=== PATIENT | female | born 2000 | race Caucasian/White ===

== ENCOUNTER → 2024-11-09 | Outpatient (CLI) | LOC: M SOG 14:29 | PROVIDERS: ATTEND Physician Assistant | DX: M25.532 Pain in left wrist (principal); M25.531 Pain in right wrist ==

== ENCOUNTER 2024-12-13 06:50 | Day surgery (SDC) | payer OTHER ==
[~2024-12-13] VITALS: Ht 185.4 cm; Wt 82.6 kg
[2024-12-13] MEDS ORDERED: LIDOCAINE 2% 100MG/5ML SDV (FOR ANES.) As Ordered ONE (06:58)
[2024-12-13] MEDS ORDERED: ONDANSETRON 4MG 2ML VIAL As Ordered ONE (06:58)
[2024-12-13] MEDS ORDERED: fentaNYL 100 MCG/2 ML INJECTION As Ordered ONE (06:58)
[2024-12-13] MEDS ORDERED: MIDAZOLAM INJ 2MG/2ML VIAL As Ordered ONE (06:58)
[2024-12-13] MEDS ORDERED: METOCLOPRAMIDE INJ 10MG/2ML VIAL As Ordered ONE (06:59)
[2024-12-13] MEDS ORDERED: propofoL 200 MG/20 ML VIAL As Ordered ONE (06:59)
[2024-12-13] MEDS: LR 1,000 ML IV SCH (07:00)
[2024-12-13] MEDS ORDERED: KETOROLAC 30 MG/ML 1ML VIAL As Ordered ONE (07:01)
[2024-12-13] MEDS ORDERED: ALBU2.5V10 INH (07:28)
[2024-12-13] MEDS ORDERED: VALA1TAB5 PO (07:28)
[2024-12-13] MEDS ORDERED: BACITRACIN OINTMENT 30GM TUBE As Ordered ONE (07:34)
[2024-12-13] MEDS: ceFAZolin SODIUM 2 GM in DEXTROSE 5% (D5W) ADV/MINI-BAG 50 ML IV ONE (08:20)
[2024-12-13] MEDS ORDERED: HYDROmorphone HCL 2MG/ML 1ML VIAL As Ordered ONE (08:36)
[2024-12-13] MEDS ORDERED: LR 1,000 ML IV SCH (09:45)
[2024-12-13] MEDS ORDERED: fentaNYL 100 MCG/2 ML INJECTION IV PRN (09:45)
[2024-12-13] MEDS: ONDANSETRON 4MG 2ML VIAL IV PRN (10:10)
[2024-12-13] MEDS: HYDROMORPHONE HCL 0.5 MG/ 0.5 ML SYRINGE IV PRN (10:11)
[2024-12-13] MEDS: oxyCODONE 5MG TAB PO PRN (10:11)
[2024-12-13] MEDS: PROMETHAZINE 25MG/ML 1ML VIAL IV PRN (10:43)
[2024-12-13 11:38] VITALS: BP 120/79; TEMP 97.7; O2SAT 100
== END 2024-12-13 11:42 | disposition home or self-care (01) ==
LOC: M SDC 06:50
PROVIDERS: ATTEND Orthopaedic Surgery Hand Surgery
DX: S63.592A Other specified sprain of left wrist, initial encounter (principal); M25.532 Pain in left wrist; J45.909 Unspecified asthma, uncomplicated; Z79.51 Long term (current) use of inhaled steroids
CPT/HCPCS: 29846; 81025; J0665; J0690; J1100; J1171; J1885; J2250; J2405; J2550; J2765; J3010

== ENCOUNTER → 2025-04-24 | Outpatient (CLI) | payer OTHER ==
[~2025-04-24] MED LIST: ALBU2.5V10 INH; VALA1TAB5 PO
== END ==
LOC: M WHC 10:06
PROVIDERS: ATTEND Advanced Practice Midwife
DX: Z34.80 Encounter for supervision of other normal pregnancy, unspecified trimester (principal)

== ENCOUNTER → 2025-05-29 | Outpatient (CLI) | payer OTHER | LOC: M WHC 11:04 | PROVIDERS: ATTEND Nurse Practitioner Family | DX: Z34.02 Encounter for supervision of normal first pregnancy, second trimester (principal) ==

== ENCOUNTER → 2025-05-29 | Outpatient (CLI) | payer OTHER ==
[2025-05-29 14:58] LABS: PLATELET COUNT, AUTOMATED 158 10^3/uL (150-450)
[2025-05-29 15:27] LABS: GLUCOSE CHALLENGE TEST 1 HOUR 108 MG/DL (LESS THAN 140)
[2025-05-29 15:52] LABS: HIV 1&2 SCREEN NEGATIVE (NEGATIVE)
[2025-05-29 16:00] LABS: HEPATITIS C VIRUS ABY INDEX 0.02 INDEX (<0.8)
[2025-05-29 16:35] LABS: Trichomonas vaginalis (AMP) NOT DETECTED (NEGATIVE)
[2025-05-29 16:59] LABS: GC DNA AMPLIFICATION NEGATIVE (NEGATIVE)
== END ==
LOC: M PLALAB 11:07
PROVIDERS: ATTEND Obstetrics & Gynecology
DX: Z34.02 Encounter for supervision of normal first pregnancy, second trimester (principal)

== ENCOUNTER → 2025-08-15 | Outpatient (REF) | payer OTHER | LOC: M SFHCWAGY 12:53 | PROVIDERS: ATTEND Obstetrics & Gynecology | DX: Z34.93 Encounter for supervision of normal pregnancy, unspecified, third trimester (principal) ==